=== PATIENT | female | born 1975 | race Asian ===

== ENCOUNTER 2019-08-25 16:08 | Emergency (ER) | payer OTHER ==
[~2019-08-25] VITALS: Ht 157.5 cm; Wt 58.0 kg
[2019-08-25 16:16] VITALS: BP 133/76
[2019-08-25] MEDS ORDERED: CYCL-331 PO (16:55)
--- NOTE | 2019-08-25 16:55 | PHYS DOC ---
Past History Past Medical History: No Pertinent History Past Surgical History: No Surgical History Alcohol Use: None Adult General Chief Complaint Chief Complaint: SHOULDER INJURY HPI HPI Patient is a 43 year old female who presents with complaint of right shoulder pain. The patient states that she has had pain for over 1 year in the right shoulder. Notes that she had been doing physical therapy to help with pain in her right shoulder. Has had previous x-ray imaging which did not show any evidence of fracture or malalignment. She states that since the pandemic started, she has not been able to get physical therapy. Has been noting worsening pain in her right shoulder. States that it is worse at nighttime. She has not seen an orthopedic surgeon or had MRI imaging of the shoulder. Has not had any recent fall or trauma. She states that she is having difficulty sleeping at nighttime secondary to pain. She states that she tried following with [place] physician [place] but was unable to get into see them and was instructed to come to the emergency department to be seen. [] Review of Systems Review of Systems Constitutional: Denies fever or chills [] Eyes: Denies change in visual acuity, redness, or eye pain [] HENT: Denies nasal congestion or sore throat [] Respiratory: Denies cough or shortness of breath [] Cardiovascular: Denies chest pain or edema [] GI: Denies abdominal pain, nausea, vomiting, bloody stools or diarrhea [] : Denies dysuria or hematuria [] Musculoskeletal: Right shoulder pain [] Integument: Denies rash or skin lesions [] Neurologic: Denies headache, focal weakness or sensory changes [] All other systems were reviewed and found to be within normal limits, except as documented in this note. Physical Exam Physical Exam Constitutional: Well developed, well nourished, no acute distress, non-toxic appearance. [] HENT: Normocephalic, atraumatic, bilateral external ears normal, oropharynx moist, no oral exudates, nose normal. [] Eyes: PERRLA, EOMI, conjunctiva normal, no discharge. [] Neck: Normal range of motion, no tenderness, supple, no stridor. [] Cardiovascular:Heart rate regular rhythm, no murmur [] Lungs & Thorax: Bilateral breath sounds clear to auscultation [] Abdomen: Bowel sounds normal, soft, no tenderness, no masses, no pulsatile masses. [] Skin: Warm, dry, no erythema, no rash. [] Back: No tenderness, no CVA tenderness. [] Extremities: No obvious deformity present to right shoulder, right supraspinatus testing positive with pain elicited with arm extended and internally rotated. [] Neurologic: Alert and oriented X 3, normal motor function, normal sensory function, no focal deficits noted. [] Current Patient Data Vital Signs Vital Signs Date Time Temp Pulse Resp B/P (MAP) Pulse Ox O2 Delivery O2 Flow Rate FiO2 08/25/19 16:16 98.0 84 16 133/76 (95) 97 Room Air Lab Results Not performed EKG EKG Not performed [] Radiology/Procedures Radiology/Procedures Not performed [] Course & Med Decision Making Course & Med Decision Making Pertinent Labs and Imaging studies reviewed. (See chart for details) Based off evaluation, suspect possible ongoing rotator cuff injury. Patient prescribed Flexeril to take at nighttime and referred to Dr. Duarte of orthopedic surgery for outpatient follow-up. Recommended return to the emergency department for any worsening symptoms. Patient voiced understanding and agreement with treatment plan. PPE: IGurdeep MD, wore a level 3 mask, eye protection, and gloves during patient encounter. [] Dragon Disclaimer Dragon Disclaimer This electronic medical record was generated, in whole or in part, using a voice recognition dictation system. Departure Departure: Impression: Primary Impression: Chronic right shoulder pain Disposition: 01 HOME/RESIDENCE PRIOR TO ADM Condition: STABLE Referrals: PCP,UNKNOWN (PCP) GALINDO DUARTE MD Patient Instructions: Shoulder Pain Additional Instructions: Be sure to follow-up with orthopedic surgery in the next 1 to 2 weeks for reevaluation. Return to the emergency department for any worsening symptoms. Scripts Cyclobenzaprine Hcl (CYCLOBENZAPRINE HCL) 10 Mg Tablet 1 TAB PO QHS PRN for MUSCLE PAIN, #15 TAB Prov: GURDEEP BRAVO MD 08/25/19 GURDEEP BRAVO MD August 25, 2019 16:55
== END 2019-08-25 17:01 | disposition home or self-care (01) ==
LOC: ER 16:08
DX: G89.29 Other chronic pain (principal); M25.511 Pain in right shoulder
CPT/HCPCS: 99282; 99283

== ENCOUNTER 2020-10-15 14:24 | Emergency (ER) | payer OTHER ==
[~2020-10-15] VITALS: Ht 157.5 cm; Wt 58.0 kg
[~2020-10-15 14:24] MED LIST: CYCL-331 PO
[2020-10-15] MEDS ORDERED: ONDANSETRON ODT 4 MG TAB.RAPDIS PO ONE (16:30)
[2020-10-15] MEDS ORDERED: KETOROLAC 15 MG/ML VIAL. IM ONE (16:30)
[2020-10-15] MEDS ORDERED: diphenhydrAMINE HCL 25 MG CAPSULE PO ONE (16:30)
--- NOTE | 2020-10-15 16:58 | PHYS DOC ---
Past History Past Medical History: No Pertinent History Past Surgical History: , Other Additional Past Surgical Histo: rt shoulder Alcohol Use: None General Adult EDM: Chief Complaint: HEADACHE HPI: HPI: Patient is a 40-year-old female presents with headache, nausea. patient states that she has a history of migraines. "I have been taking ibuprofen which usually helps, but has not helped at this time". Patient states that pain started 4 days ago. Denies medical history. Review of Systems: Review of Systems: Constitutional: Denies fever or chills Eyes: Denies change in visual acuity HENT: Denies nasal congestion or sore throat Respiratory: Denies cough or shortness of breath Cardiovascular: Denies chest pain or edema GI: Denies abdominal pain. Reports nausea : Denies dysuria Musculoskeletal: Denies back pain or joint pain Integument: Denies rash Neurologic: Reports headache Endocrine: Denies polyuria or polydipsia Lymphatic: Denies swollen glands Psychiatric: Denies depression or anxiety Current Medications: Current Meds: Current Medications Medications (Trade) Dose Ordered Sig/Doris Start Time Stop Time Status Last Admin Dose Admin Diphenhydramine HCl (Benadryl) 25 mg 1X ONCE 10/15/20 16:30 10/15/20 16:31 DC 10/15/20 16:34 25 MG Ketorolac Tromethamine (Toradol 15mg Vial) 15 mg 1X ONCE 10/15/20 16:30 10/15/20 16:31 DC 10/15/20 16:36 15 MG Ondansetron HCl (Zofran Odt) 4 mg 1X ONCE 10/15/20 16:30 10/15/20 16:31 DC 10/15/20 16:35 4 MG Allergies: Allergies: Allergies Coded Allergies Type Severity Reaction Last Updated Verified No Known Drug Allergies 10/15/20 No Physical Exam: PE: Constitutional: Well developed, well nourished, no acute distress, non-toxic appearance. [] HENT: Normocephalic, atraumatic, bilateral external ears normal, oropharynx moist, no oral exudates, nose normal. [] Eyes: PERRLA, EOMI, conjunctiva normal, no discharge. [] Neck: Normal range of motion, no tenderness, supple, no stridor. [] Cardiovascular:Heart rate regular rhythm, no murmur [] Lungs & Thorax: Bilateral breath sounds clear to auscultation [] Abdomen: Bowel sounds normal, soft, no tenderness, no masses, no pulsatile masses. [] Skin: Warm, dry, no erythema, no rash. [] Back: No tenderness, no CVA tenderness. [] Extremities: No tenderness, no cyanosis, no clubbing, ROM intact, no edema. [] Neurologic: Alert and oriented X 3, normal motor function, normal sensory function, no focal deficits noted. [] Psychologic: Affect normal, judgement normal, mood normal. [] Current Patient Data: Vital Signs: Vital Signs Date Time Temp Pulse Resp B/P (MAP) Pulse Ox O2 Delivery O2 Flow Rate FiO2 10/15/20 16:05 57 20 117/76 (90) 99 Room Air 10/15/20 14:31 98.2 EKG: EKG: [] Radiology/Procedures: Radiology/Procedures: [] Heart Score: C/O Chest Pain: No Risk Factors: Risk Factors: DM, Current or recent (<one month) smoker, HTN, HLP, family history of CAD, obesity. Risk Scores: Score 0 - 3: 2.5% MACE over next 6 weeks - Discharge Home Score 4 - 6: 20.3% MACE over next 6 weeks - Admit for Clinical Observation Score 7 - 10: 72.7% MACE over next 6 weeks - Early Invasive Strategies Course & Med Decision Making: Course & Med Decision Making Pertinent Labs and Imaging studies reviewed. (See chart for details) [] 44-year-old female presents with migraine headache, nausea. Patient has a history of migraines. Patient states that ibuprofen usually elevates symptoms but has not worked at this time. Patient denies thunderclap. Denies worst headache of her life. Patient given Zofran, Toradol, Benadryl. Dragon Disclaimer: Dragon Disclaimer: This electronic medical record was generated, in whole or in part, using a voice recognition dictation system. Departure Departure: Impression: Primary Impression: Migraine Qualified Codes: G43.009 - Migraine without aura, not intractable, without status migrainosus Additional Impression: Nausea Disposition: HOME / SELF CARE / HOMELESS Condition: STABLE Referrals: PCP,UNKNOWN (PCP) Patient Instructions: Migraine Headache, [id number] Additional Instructions: You are seen emergency room for a migraine headache along with nausea. You were given Toradol, Zofran, Benadryl to treat symptoms. Continue taking ibuprofen at home for discomfort. Return to emergency room if you have worsening symptoms or concerns. EMERGENCY DEPARTMENT GENERAL DISCHARGE INSTRUCTIONS Thank you for coming to [facility] ([facility]) today and trusting us with you care. We trust that you had a positivie experience in our Emergency Department. If you wish to speak to the department management, you may call the director at [phone]. YOUR FOLLOW UP INSTRUCTIONS ARE FOLLOWS: 1. Do you have a private Doctor? If you do not have a private doctor, please ask for a resource list of physicians or clinics that may be able to assist you with follow up care. 2. The Emergency Physician has interpreted your x-rays. The X-Ray specialist will also review them. If there is a change in the findings, you will be notified in 48 hours when at all possible. 3. A lab test or culture has been done, your results will be reviewed and you will be notified if you need a change in treatment. ADDITIONAL INSTRUCTIONS AND INFORMATION: 1. Your care today has been supervised by a physician who is specially trained in emergency care. Many problems require more than one evaluation for a complete diagnosis and treatment. We recommend that you schedule your follow up appointment as recom mended to ensure complete treatment of you illness or injury. If you are unable to obtain follow up care and continue to have a problem, or if your condition worsens, we recommend that you return to the ED. 2. We are not able to safely determine your condition over the phone nor are we able to give sound medical advice over the phone. For these safety reasons, if you call for medical advice we will ask you to come to the ED for further evaluation. 3. If you have any questions regarding these discharge instructions please call the ED at [phone]. SAFETY INFORMATION: In the interest of safety, wellness, and injury prevention; we encourage you to wear your sealbelt, if you smoke; quite smoking, and we encourage family to use a protective helmet for bicycling and other sporting events that present an increased risk for head injury. IF YOUR SYMPTOMS WORSEN OR NEW SYMPTOMS DEVELOP, OR YOU HAVE CONCERNS ABOUT YOUR CONDITION; OR IF YOUR CONDITION WORSENS WHILE YOU ARE WAITING FOR YOUR FOLLOW UP APPOINTMENT; EITHER CONTACT YOUR PRIMARY CARE DOCTOR, THE PHYSICIAN WHOSE NAME AND NUMBER YOU WERE GIVEN, OR RETURN TO THE ED IMMEDIATELY. MALINI VU APRN Oct 15, 2020 16:58
[2020-10-15 17:59] VITALS: BP 123/84
== END 2020-10-15 17:59 | disposition home or self-care (01) ==
LOC: ER 14:24
DX: G43.009 Migraine without aura, not intractable, without status migrainosus (principal); R11.0 Nausea; Z98.890 Other specified postprocedural states
CPT/HCPCS: 96372; 99283; J1885; Q0162; Q0163